=== PATIENT | male | born 1970 | race Caucasian/White ===

== ENCOUNTER 2022-03-04 03:25 | Inpatient (IN) ==
[2022-03-04] MEDS ORDERED: Ondansetron 4 MG/2 ML VIAL IVP PRN ×2 (06:44→07:57)
[2022-03-04] MEDS ORDERED: Melatonin 3 MG TABLET PO PRN (06:44)
[2022-03-04] MEDS ORDERED: Naloxone 0.4 MG/ML INJ IVP PRN (06:44)
[2022-03-04] MEDS ORDERED: D5% in Water 1,000 ML IVC PRN (06:49)
[2022-03-04] MEDS ORDERED: *HR* Dextrose 50 % in Water (Syg) 50 ML SYRINGE IVP PRN (06:49)
[2022-03-04] MEDS ORDERED: Dextrose Gel 15 GM/37.5 ML TUBE PO PRN ×2 (06:49)
[2022-03-04] MEDS ORDERED: Pantoprazole 40 MG VIAL IVP ONE (07:47)
[2022-03-04 08:16] LABS: Basophils % 0.3 %; Eosinophils # 0.1 K/mcL (0.0-0.6); Eosinophils % 1.3 %; Hematocrit 15.3 % (37.5-50.1); Immature Granulocytes % 0.4 % (0-4); Lymphocytes # 0.9 K/mcL (0.6-4.6); Lymphocytes % 8.3 %; Mean Corpuscular Hemoglobin 28.2 pg (28.0-33.3); Mean Corpuscular Volume 87.9 fL (83.0-100.0); Mean Platelet Volume 10.4 fL (9.4-12.4); Monocytes % 9.9 %; Neutrophils # 8.2 K/mcL (1.6-8.9); Platelet Count 216 K/mcL (140-400); Red Blood Count 1.74 M/mcL (4.19-5.50); Red Cell Distribution Width 18.5 % (11.5-14.5); Segmented Neutrophils % 79.8 %; White Blood Count 10.3 K/mcL (4.3-11.1)
[2022-03-04 08:23] LABS: Hemoglobin 4.9 g/dL (12.9-16.9)
[2022-03-04 08:29] LABS: INR 2.1; Prothrombin Time 22.8 Seconds (9.4-12.1)
[2022-03-04 08:32] LABS: Activated Partial Thrombo Time 32.3 Seconds (26.0-36.0)
[2022-03-04 08:34] LABS: Ethanol < 10 mg/dL (Less than 10); Magnesium 2.1 mg/dL (1.6-2.6); Phosphorous 3.5 mg/dL (2.7-4.5)
[2022-03-04 08:34] LABS: Albumin 3.1 g/dL (3.5-5.7); Albumin/Globulin Ratio 1.1 (1.1-2.2); Bilirubin,Direct 1.1 mg/dL (0.0-0.2); Bilirubin,Indirect 2.3 mg/dL (0.0-1.0); Bilirubin,Total 3.4 mg/dL (0.3-1.0); Calcium 8.9 mg/dL (8.6-10.3); Globulin 2.8 g/dL (2.4-3.5); Potassium 4.3 mEq/L (3.5-5.1); Total Protein 5.9 g/dL (6.4-8.9)
[2022-03-04] MEDS ORDERED: Folic Acid 1 MG in 0.9 % Sodium Chloride 50 ML IVPB SCH (09:00)
[2022-03-04] MEDS ORDERED: Thiamine (B-1) 200 MG in 0.9 % Sodium Chloride 50 ML IVPB SCH (09:00)
[2022-03-04] MEDS: Thiamine (B-1) 100 MG TABLET PO SCH (09:05)
[2022-03-04] MEDS: Folic Acid 1 MG TABLET PO SCH (09:05)
[2022-03-04] MEDS: Vitamin B Complex/Vit C/Vit E 1 EACH TABLET PO SCH (09:05)
[2022-03-04] MEDS: Octreotide 400 MCG in 0.9 % Sodium Chloride 100 ML IVC SCH ×2 (09:06→16:17)
[2022-03-04] MEDS ORDERED: 0.9 % Sodium Chloride 250 ML ONE ×2 (10:08→16:56)
[2022-03-04 14:36] LABS: Bilirubin,Urine Negative (Negative); Blood,Urine Negative (Negative); Clarity,Urine Clear (Clear); Color,Urine Yellow (Yellow); Glucose,Urine (UA) Normal (Normal); Ketones,Urine Negative (Negative); Leukocyte Esterase,Urine Negative (Negative); Nitrite,Urine Negative (Negative); Protein,Urine Trace mg/dL (Neg-Trace); Specific Gravity,Urine 1.014 (1.010-1.025); Urobilinogen,Urine Normal (Normal)
[2022-03-04 14:39] LABS: Creatinine,Urine 111 mg/dL; Sodium, Urine < 10.0 mEq/L
[2022-03-04] MEDS ORDERED: SODIUM CHLORIDE/NAHCO3/KCL/PEG 4,000 ML SOLN.RECON PO ONE (17:00)
[2022-03-04] MEDS: Pantoprazole 40 MG VIAL IVP SCH (17:45)
[2022-03-04] MEDS: Furosemide 20 MG/2 ML VIAL IVP SCH (17:46)
[2022-03-04] MEDS: Acetaminophen 325 MG TABLET PO PRN (20:14)
[2022-03-05 03:15] LABS: Hematocrit 18.9 % (37.5-50.1); Hemoglobin 6.2 g/dL (12.9-16.9); Mean Corpuscular HGB Conc 32.8 g/dL (31.6-35.5); Mean Corpuscular Volume 88.3 fL (83.0-100.0); Platelet Count 206 K/mcL (140-400); Red Blood Count 2.14 M/mcL (4.19-5.50); Red Cell Distribution Width 17.5 % (11.5-14.5)
[2022-03-05 03:38] LABS: Calcium 8.8 mg/dL (8.6-10.3); Potassium 4.4 mEq/L (3.5-5.1)
[2022-03-05] MEDS: Folic Acid 1 MG TABLET PO SCH (07:49)
[2022-03-05] MEDS: Vitamin B Complex/Vit C/Vit E 1 EACH TABLET PO SCH (07:49)
[2022-03-05] MEDS: Thiamine (B-1) 100 MG TABLET PO SCH (07:49)
[2022-03-05] MEDS: Pantoprazole 40 MG VIAL IVP SCH ×2 (08:51→17:12)
[2022-03-05] MEDS: Furosemide 20 MG/2 ML VIAL IVP SCH ×2 (08:51→17:12)
[2022-03-05] MEDS: Octreotide 400 MCG in 0.9 % Sodium Chloride 100 ML IVC SCH ×2 (09:48→18:44)
[2022-03-05] MEDS ORDERED: *HR* Propofol 200 MG/20 ML VIAL IVP ONE (15:48)
[2022-03-05] MEDS ORDERED: *HR* Succinylcholine 200 MG/10 ML VIAL IVP ONE (15:49)
[2022-03-05] MEDS ORDERED: Lidocaine HCL 4 ML Topical Solution (Laryng-O-Jet Kit Sterile Pak) TP ONE (15:49)
[2022-03-05] MEDS ORDERED: Ondansetron 4 MG/2 ML VIAL ONE (15:49)
[2022-03-05] MEDS ORDERED: Lidocaine -MPF 2% 2 ML VIAL ONE (15:49)
[2022-03-05] MEDS ORDERED: *HR* Rocuronium Bromide 50 MG/5 ML VIAL ONE (15:49)
[2022-03-05] MEDS ORDERED: *HR* FentaNYL (PF) 100 MCG/2 ML VIAL ONE (15:49)
[2022-03-05] MEDS ORDERED: Ondansetron 4 MG/2 ML VIAL IVP PRN (16:22)
[2022-03-05] MEDS ORDERED: *HR* Vasopressin 20 UNIT/ML VIAL ONE (16:30)
[2022-03-05] MEDS ORDERED: Albumin Human 5% 12.5 GM/250 ML IV.SOLN ONE (16:30)
[2022-03-05 20:32] LABS: Hematocrit 22.2 % (37.5-50.1); Hemoglobin 7.1 g/dL (12.9-16.9)
[2022-03-06 03:56] LABS: Basophils % 0.3 %; Eosinophils # 0.1 K/mcL (0.0-0.6); Hematocrit 21.5 % (37.5-50.1); Hemoglobin 6.9 g/dL (12.9-16.9); Immature Granulocytes % 1.3 % (0-4); Lymphocytes # 0.6 K/mcL (0.6-4.6); Lymphocytes % 5.5 %; Mean Corpuscular HGB Conc 32.1 g/dL (31.6-35.5); Mean Corpuscular Hemoglobin 28.6 pg (28.0-33.3); Mean Corpuscular Volume 89.2 fL (83.0-100.0); Mean Platelet Volume 9.7 fL (9.4-12.4); Monocytes # 0.8 K/mcL (0.0-1.3); Monocytes % 7.9 %; Neutrophils # 8.4 K/mcL (1.6-8.9); Platelet Count 210 K/mcL (140-400); Red Blood Count 2.41 M/mcL (4.19-5.50); Red Cell Distribution Width 17.4 % (11.5-14.5)
[2022-03-06 04:05] LABS: INR 1.7; Prothrombin Time 18.9 Seconds (9.4-12.1)
[2022-03-06 04:14] LABS: Albumin 3.2 g/dL (3.5-5.7); Albumin/Globulin Ratio 1.2 (1.1-2.2); Bilirubin,Total 7.9 mg/dL (0.3-1.0); Calcium 8.9 mg/dL (8.6-10.3); Globulin 2.7 g/dL (2.4-3.5); Potassium 4.3 mEq/L (3.5-5.1); Total Protein 5.9 g/dL (6.4-8.9)
[2022-03-06] MEDS ORDERED: 0.9 % Sodium Chloride 250 ML ONE (05:48)
[2022-03-06 06:03] LABS: Hepatitis B Surface Antigen Nonreactive (Nonreactive)
[2022-03-06] MEDS: Pantoprazole 40 MG VIAL IVP SCH ×2 (06:03→18:47)
[2022-03-06] MEDS: Octreotide 400 MCG in 0.9 % Sodium Chloride 100 ML IVC SCH (06:10)
[2022-03-06 06:32] LABS: Hepatitis C Virus Antibody Nonreactive (Nonreactive)
[2022-03-06 06:33] LABS: Hepatitis A Antibody IgM Nonreactive (Nonreactive); Hepatitis B Core IgM Nonreactive (Nonreactive)
[2022-03-06 16:29] LABS: Hematocrit 23.3 % (37.5-50.1); Hemoglobin 7.4 g/dL (12.9-16.9)
[2022-03-06 17:31] LABS: Albumin 3.1 g/dL (3.5-5.7); Albumin/Globulin Ratio 1.1 (1.1-2.2); Bilirubin,Total 6.5 mg/dL (0.3-1.0); Calcium 8.8 mg/dL (8.6-10.3); Globulin 2.7 g/dL (2.4-3.5); Total Protein 5.8 g/dL (6.4-8.9)
[2022-03-06] MEDS: Folic Acid 1 MG TABLET PO SCH (18:48)
[2022-03-06] MEDS: Vitamin B Complex/Vit C/Vit E 1 EACH TABLET PO SCH (18:48)
[2022-03-06] MEDS: Thiamine (B-1) 100 MG TABLET PO SCH (18:48)
[2022-03-07 03:46] LABS: Basophils # 0.1 K/mcL (0.0-0.2); Basophils % 0.6 %; Eosinophils # 0.4 K/mcL (0.0-0.6); Hematocrit 23.8 % (37.5-50.1); Hemoglobin 7.6 g/dL (12.9-16.9); Lymphocytes # 1.1 K/mcL (0.6-4.6); Lymphocytes % 10.7 %; Mean Corpuscular HGB Conc 31.9 g/dL (31.6-35.5); Mean Corpuscular Hemoglobin 28.7 pg (28.0-33.3); Mean Corpuscular Volume 89.8 fL (83.0-100.0); Monocytes # 0.9 K/mcL (0.0-1.3); Monocytes % 9.4 %; Neutrophils # 7.3 K/mcL (1.6-8.9); Platelet Count 218 K/mcL (140-400); Red Blood Count 2.65 M/mcL (4.19-5.50); Red Cell Distribution Width 17.8 % (11.5-14.5); Segmented Neutrophils % 74.3 %; White Blood Count 9.8 K/mcL (4.3-11.1)
[2022-03-07 03:52] LABS: Calcium 9.1 mg/dL (8.6-10.3); Potassium 4.2 mEq/L (3.5-5.1)
[2022-03-07] MEDS: Pantoprazole 40 MG VIAL IVP SCH (05:12)
[2022-03-07] MEDS: Vitamin B Complex/Vit C/Vit E 1 EACH TABLET PO SCH (09:47)
[2022-03-07] MEDS: Folic Acid 1 MG TABLET PO SCH (09:47)
[2022-03-07] MEDS: Thiamine (B-1) 100 MG TABLET PO SCH (09:47)
[2022-03-07] MEDS ORDERED: Furosemide 20 MG TABLET PO ONE (12:04)
[2022-03-07] MEDS: Acetaminophen 325 MG TABLET PO PRN (17:43)
[2022-03-08] MEDS: Acetaminophen 325 MG TABLET PO PRN (02:23)
[2022-03-08 02:32] LABS: Basophils # 0.1 K/mcL (0.0-0.2); Basophils % 0.9 %; Eosinophils # 0.6 K/mcL (0.0-0.6); Eosinophils % 6.8 %; Hematocrit 25.4 % (37.5-50.1); Immature Granulocytes % 0.8 % (0-4); Lymphocytes % 11.2 %; Mean Corpuscular HGB Conc 31.5 g/dL (31.6-35.5); Mean Corpuscular Hemoglobin 29.2 pg (28.0-33.3); Mean Corpuscular Volume 92.7 fL (83.0-100.0); Mean Platelet Volume 9.7 fL (9.4-12.4); Monocytes # 0.9 K/mcL (0.0-1.3); Monocytes % 10.1 %; Neutrophils # 6.4 K/mcL (1.6-8.9); Platelet Count 210 K/mcL (140-400); Red Blood Count 2.74 M/mcL (4.19-5.50); Red Cell Distribution Width 18.7 % (11.5-14.5); Segmented Neutrophils % 70.2 %; White Blood Count 9.1 K/mcL (4.3-11.1)
[2022-03-08 02:49] LABS: Albumin 3.2 g/dL (3.5-5.7); Albumin/Globulin Ratio 1.1 (1.1-2.2); Bilirubin,Total 3.9 mg/dL (0.3-1.0); Total Protein 6.2 g/dL (6.4-8.9)
[2022-03-08] MEDS: Folic Acid 1 MG TABLET PO SCH (08:01)
[2022-03-08] MEDS: Thiamine (B-1) 100 MG TABLET PO SCH (08:01)
[2022-03-08] MEDS: Vitamin B Complex/Vit C/Vit E 1 EACH TABLET PO SCH (08:01)
[2022-03-08] MEDS: Furosemide 20 MG TABLET PO SCH (08:28)
[2022-03-09 04:28] LABS: Hematocrit 25.8 % (37.5-50.1); Hemoglobin 7.9 g/dL (12.9-16.9); Mean Corpuscular HGB Conc 30.6 g/dL (31.6-35.5); Mean Corpuscular Hemoglobin 28.4 pg (28.0-33.3); Mean Corpuscular Volume 92.8 fL (83.0-100.0); Mean Platelet Volume 9.7 fL (9.4-12.4); Platelet Count 217 K/mcL (140-400); Red Blood Count 2.78 M/mcL (4.19-5.50); Red Cell Distribution Width 19.4 % (11.5-14.5); White Blood Count 9.7 K/mcL (4.3-11.1)
[2022-03-09] MEDS: Vitamin B Complex/Vit C/Vit E 1 EACH TABLET PO SCH (08:58)
[2022-03-09] MEDS: Folic Acid 1 MG TABLET PO SCH (08:58)
[2022-03-09] MEDS: Furosemide 20 MG TABLET PO SCH (08:59)
[2022-03-09] MEDS: Thiamine (B-1) 100 MG TABLET PO SCH (08:59)
[2022-03-10] MEDS: Thiamine (B-1) 100 MG TABLET PO SCH (07:38)
[2022-03-10] MEDS: Folic Acid 1 MG TABLET PO SCH (07:38)
[2022-03-10] MEDS: Furosemide 20 MG TABLET PO SCH (07:38)
[2022-03-10] MEDS: Vitamin B Complex/Vit C/Vit E 1 EACH TABLET PO SCH (07:38)
[2022-03-10] MEDS ORDERED: Furosemide 20 MG TABLET PO SCH (09:00)
[2022-03-10] MEDS ORDERED: Furosemide 20 MG TABLET PO ONE (09:44)
[2022-03-10 17:19] LABS: Basophils # 0.1 K/mcL (0.0-0.2); Eosinophils # 0.5 K/mcL (0.0-0.6); Hematocrit 25.1 % (37.5-50.1); Hemoglobin 7.7 g/dL (12.9-16.9); Immature Granulocytes % 0.3 % (0-4); Lymphocytes # 1.2 K/mcL (0.6-4.6); Lymphocytes % 12.7 %; Mean Corpuscular HGB Conc 30.7 g/dL (31.6-35.5); Mean Corpuscular Hemoglobin 28.9 pg (28.0-33.3); Mean Corpuscular Volume 94.4 fL (83.0-100.0); Mean Platelet Volume 9.7 fL (9.4-12.4); Monocytes % 10.7 %; Neutrophils # 6.3 K/mcL (1.6-8.9); Platelet Count 196 K/mcL (140-400); Red Blood Count 2.66 M/mcL (4.19-5.50); Red Cell Distribution Width 19.8 % (11.5-14.5); Segmented Neutrophils % 69.3 %; White Blood Count 9.1 K/mcL (4.3-11.1)
[2022-03-10 17:32] LABS: Albumin 3.2 g/dL (3.5-5.7); Bilirubin,Total 3.4 mg/dL (0.3-1.0); Calcium 9.1 mg/dL (8.6-10.3); Globulin 3.1 g/dL (2.4-3.5); Total Protein 6.3 g/dL (6.4-8.9)
[2022-03-11 06:33] LABS: Basophils # 0.1 K/mcL (0.0-0.2); Basophils % 1.3 %; Eosinophils # 0.6 K/mcL (0.0-0.6); Hematocrit 23.6 % (37.5-50.1); Hemoglobin 7.4 g/dL (12.9-16.9); Immature Granulocytes % 0.4 % (0-4); Lymphocytes % 12.6 %; Mean Corpuscular HGB Conc 31.4 g/dL (31.6-35.5); Mean Corpuscular Hemoglobin 29.2 pg (28.0-33.3); Mean Corpuscular Volume 93.3 fL (83.0-100.0); Mean Platelet Volume 9.7 fL (9.4-12.4); Monocytes # 0.8 K/mcL (0.0-1.3); Monocytes % 10.2 %; Neutrophils # 5.4 K/mcL (1.6-8.9); Platelet Count 173 K/mcL (140-400); Red Blood Count 2.53 M/mcL (4.19-5.50); Red Cell Distribution Width 19.7 % (11.5-14.5); Segmented Neutrophils % 68.5 %; White Blood Count 7.9 K/mcL (4.3-11.1)
[2022-03-11 07:01] LABS: Albumin 3.1 g/dL (3.5-5.7); Albumin/Globulin Ratio 1.1 (1.1-2.2); Bilirubin,Total 2.8 mg/dL (0.3-1.0); Calcium 8.8 mg/dL (8.6-10.3); Globulin 2.8 g/dL (2.4-3.5); Potassium 3.9 mEq/L (3.5-5.1); Total Protein 5.9 g/dL (6.4-8.9)
[2022-03-11] MEDS: Thiamine (B-1) 100 MG TABLET PO SCH (08:19)
[2022-03-11] MEDS: Folic Acid 1 MG TABLET PO SCH (08:19)
[2022-03-11] MEDS: Vitamin B Complex/Vit C/Vit E 1 EACH TABLET PO SCH (08:20)
[2022-03-11] MEDS ORDERED: Furosemide 20 MG TABLET PO SCH (09:00)
[2022-03-11] MEDS: Acetaminophen 325 MG TABLET PO PRN (11:29)
[2022-03-11] MEDS: Furosemide 40 MG/4 ML VIAL IVP SCH (11:30)
[2022-03-12 04:38] LABS: Basophils # 0.1 K/mcL (0.0-0.2); Eosinophils # 0.5 K/mcL (0.0-0.6); Eosinophils % 6.1 %; Hematocrit 24.5 % (37.5-50.1); Hemoglobin 7.7 g/dL (12.9-16.9); Immature Granulocytes % 0.2 % (0-4); Mean Corpuscular HGB Conc 31.4 g/dL (31.6-35.5); Mean Corpuscular Hemoglobin 29.5 pg (28.0-33.3); Mean Corpuscular Volume 93.9 fL (83.0-100.0); Mean Platelet Volume 9.9 fL (9.4-12.4); Monocytes # 0.8 K/mcL (0.0-1.3); Monocytes % 9.5 %; Neutrophils # 6.4 K/mcL (1.6-8.9); Platelet Count 171 K/mcL (140-400); Red Blood Count 2.61 M/mcL (4.19-5.50); Red Cell Distribution Width 19.9 % (11.5-14.5); Segmented Neutrophils % 72.2 %; White Blood Count 8.9 K/mcL (4.3-11.1)
[2022-03-12 04:58] LABS: Albumin 3.2 g/dL (3.5-5.7); Calcium 9.1 mg/dL (8.6-10.3); Globulin 3.2 g/dL (2.4-3.5); Potassium 4.1 mEq/L (3.5-5.1); Total Protein 6.4 g/dL (6.4-8.9)
[2022-03-12] MEDS: Furosemide 40 MG/4 ML VIAL IVP SCH (09:21)
[2022-03-12] MEDS: Vitamin B Complex/Vit C/Vit E 1 EACH TABLET PO SCH (09:23)
[2022-03-12] MEDS: Folic Acid 1 MG TABLET PO SCH (09:23)
[2022-03-12] MEDS: Thiamine (B-1) 100 MG TABLET PO SCH (09:24)
[2022-03-12 15:02] LABS: Influenza A PCR Negative (Negative); Influenza B PCR Negative (Negative); Resp. Syncytial Virus PCR Negative (Negative); SARS-CoV-2 by PCR (In House) Negative (Negative)
== END 2022-03-12 16:50 | DRG 291 ==
LOC: 2NNU → SUATTDRO 06:50 → 3ANU 03-09 20:23
PROVIDERS: ADMIT Internal Medicine; ATTEND Internal Medicine